=== PATIENT | female | born 1960 | race Two or more races ===

== ENCOUNTER → 2019-01-20 | Outpatient (CLI) | payer OTHER ==
[2016-07-18 08:00] VITALS: BP 112/55
--- NOTE | 2019-01-20 15:46 | RAD ---
MR of the right knee HISTORY: Right knee pain. TECHNIQUE: Routine multiplanar sequences are obtained. FINDINGS: There is a tear of the posterior horn of the medial meniscus. No evidence of lateral meniscal tear. Anterior and posterior cruciate ligaments are intact. Medial collateral ligament is intact. Iliotibial band unremarkable. Fibular collateral ligament, biceps femoris tendon and popliteus tendon are intact. The extensor mechanism is intact. Small joint effusion. Moderate to severe chondromalacia of the patellofemoral joint and medial joint. No aggressive bone destruction or acute fracture. No significant More's cyst. Subchondral marrow edema at the medial joint compartment is likely degenerative. There is mild increased signal within the distal semimembranosus tendon with surrounding edema. IMPRESSION: 1. Medial meniscal tear. 2. Primary osteoarthritis. 3. Mild distal semimembranosus tendinosis. Electronically signed by: Kiel Ridley MD (01/20/2019 3:43 PM) [id number]
== END | disposition home or self-care (01) ==
LOC: MRI 12:43
PROVIDERS: ATTEND Physician Assistant Medical
DX: S83.241A Other tear of medial meniscus, current injury, right knee, initial encounter (principal); M17.11 Unilateral primary osteoarthritis, right knee; M94.28 Chondromalacia, other site; X58.XXXA Exposure to other specified factors, initial encounter; Y93.89 Activity, other specified; Y92.89 Other specified places as the place of occurrence of the external cause; Y99.8 Other external cause status
CPT/HCPCS: 73721